=== PATIENT | female | born 1950 | race Caucasian/White ===

== ENCOUNTER 2022-11-02 11:26 | Outpatient (CLI) | payer MEDICARE, BC ==
[~2022-11-02 11:26] MED LIST: Iopamidol 300 61% 100 ML VIAL FS ONE
== END 2022-11-02 11:27 | disposition home or self-care (01) ==
LOC: CSHCT 11:26
PROVIDERS: ATTEND Surgery
DX: C18.7 Malignant neoplasm of sigmoid colon (principal); K76.9 Liver disease, unspecified; K82.9 Disease of gallbladder, unspecified
CPT/HCPCS: 74177; 82565